=== PATIENT | male | born 1980 | race Two or more races ===

== ENCOUNTER 2024-12-29 18:38 | Inpatient (IN) | payer MEDICAID, SELFPAY ==
[2024-12-29] VITALS (13 sets, daily range): BP systolic 92–121; BP diastolic 51–74; PULSE 90–126; RESP 15–30; TEMP 36.9–39.3; O2SAT 88–100
--- NOTE | 2024-12-29 18:51 | XR_ITS ---
Examination: AP chest single view Technique one AP portable upright chest single view Exam date and time: 05/01/2025 1932 hrs. Indications: Sepsis. Findings: Bilateral pneumonia, significant and diffuse in the left lung right upper lobe Normal heart size The osseous structures are intact, old right-sided rib fractures Impression: Significant bilateral pneumonia
--- NOTE | 2024-12-29 18:51 | EKG_ITS ---
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
--- NOTE | 2024-12-29 18:52 | EDNOTE_ITS ---
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 Patient was noted to be having cough x 2 days, shortness of breath, febrile, tachycardic, and hypoxic. When the EMS arrived patient was noted to be satting 88% on room air. Patient was given albuterol 2 rounds of breathing treatment, IV fluids with oxygen supplementation currently satting 95% on facemask. Denies any other complaints.. Related Data Allergies Allergy/AdvReac Type Severity Reaction Status Date / Time No Known Allergies Allergy Verified 12/29/24 19:21 Review of Systems Review of Systems Narrative Review of Systems: Review of system reviewed and within normal limits except mentioned in HPI ED Exam Narrative Physical exam: VITAL SIGNS: Reviewed. GENERAL APPEARANCE: Alert and interactive, follows commands, no acute distress, HEAD AND FACE: Non-traumatic. ENT: PERRL, pink conjunctivitis, eyelid no trauma, Mucous membrane moist. NECK: Supple, nontender, no nuchal rigidity. CHEST: No tenderness, no crepitus, no paradoxical movement, no retractions. LUNGS: Symmetric ymmetric, + rales, no wheezing, + ronchi, no stridor, decreased breath sounds bilaterally. HEART: Regular rate, regular rhythm, no murmur, no gallops. ABDOMEN: Soft, positive bowel sounds, nondistended, no guarding, nontender, no rebound, no masses, RECTAL: Deferred. GENITAL: Deferred. NEUROLOGICAL: Gross motor function intact sensory function intact, Appropriate for age. MUSCULOSKELETAL: low back nontender, full range of motion. EXTREMITIES: Nontender, full range of motion. SKIN: Color pink, dry, no rash, no lacerations, no abrasions, no contusions. LYMPHATICS: Deferred. Course Quality Measures none Orders Category Date Time Status Bedside COVID-19 Antigen Test NOW Care 12/29/24 18:52 Completed Bedside Influenza A&B Antigen Test NOW Care 12/29/24 18:52 Completed COVID-19 Screening Questionnaire NOW Care 12/29/24 21:40 Active Jewelry Technician STAT Care 12/29/24 18:51 Active Continuous Pulse Oximetry STAT Care 12/29/24 18:51 Completed Decision to Admit X1 Care 12/29/24 21:40 Completed EKG (ED ONLY) *Do not use* NOW Care 12/29/24 18:51 Completed In and Out Catheter X1PRN Care 12/29/24 18:51 Active Insert IV NOW Care 12/29/24 18:51 Active NPO STAT Care 12/29/24 18:51 Active Strict Intake and Output Routine Care 12/29/24 18:51 Ordered EKG (ED Only) Stat Exams 12/29/24 18:51 Draft XR chest 1V SEPSIS PROTOCOL Stat Exams 12/29/24 18:51 Completed Alcohol, Blood Medical Stat Lab 12/29/24 19:10 Completed B-Type Natriuretic Peptide Stat Lab 12/29/24 19:10 Completed Blood Culture (Lab) Stat Lab 12/29/24 19:12 Received CBC Stat Lab 12/29/24 19:10 Completed Comprehensive Metabolic Panel Stat Lab 12/29/24 19:10 Completed Drug Screen,Urine Stat Lab 12/29/24 21:56 Ordered LDH (Lactate Dehydrogenase) Stat Lab 12/29/24 19:10 Completed Lactate (Lactic Acid) Stat Lab 12/29/24 19:10 Completed Lipase Stat Lab 12/29/24 19:10 Completed Magnesium Stat Lab 12/29/24 19:10 Completed Partial Thromboplastin Time Stat Lab 12/29/24 19:10 Completed Phosphorous Stat Lab 12/29/24 19:10 Completed Procalcitonin Stat Lab 12/29/24 19:10 Completed Prothrombin Time with INR Stat Lab 12/29/24 19:10 Completed Troponin I Stat Lab 12/29/24 19:10 Completed Urinalysis Stat Lab 12/29/24 18:51 Ordered Urine Culture Stat Lab 12/29/24 18:51 Ordered Azithromycin Inj [Zithromax Inj] 500 mg Med 12/29/24 21:19 Discontinued Sodium Chloride 0.9% 250 ml [Ns] 250 ml IV X1 Ibuprofen Tab [Motrin Tab] Med 12/29/24 18:51 Discontinued 600 mg PO X1 ONE Sodium Chloride 0.9% 1000 ml [Ns] 1,701 ml Med 12/29/24 20:32 Discontinued IV 1,701 mls/hr cefTRIAXone/D5w 1gm IV premix [Rocephin/D5w 1gm IV Med 12/29/24 18:51 Discontinued premix] 1 gm in 50 ml IV X1 Oxygen Delivery NOW RT 12/29/24 18:51 Active Vital Signs Vital signs: Vital Signs Temperature 102.8 F H 12/29/24 18:41 Pulse Rate 126 H 12/29/24 18:41 Respiratory Rate 26 H 12/29/24 18:41 Blood Pressure 99/65 12/29/24 18:41 Pulse Oximetry (%) 88 L 12/29/24 18:41 Oxygen Delivery Method Room Air 12/29/24 18:41 Shortness of Breath / Dyspnea [facility] Narrative [facility] Narrative:: 44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 Patient was noted to be having cough, shortness of breath, febrile, tachycardic, and hypoxic. When the EMS arrived patient was noted to be satting 88% on room air. Patient was given albuterol 2 rounds of breathing treatment, IV fluids with oxygen supplementation currently satting 95% on facemask. Denies any other complaints. CBC showed no leukocytosis, lactic acid was noted to be 2.9 Pro-Isacc of 46.98 chest x-ray showed significant bilateral pneumonia EKG showed sinus tachycardia, ventricular rate of 121 bpm, no ST segment elevation depression noted. Patient's CMP is significant for total bili of 2.2, AST of 71 [id number] 61. Patient received IV fluids for hydration, IV ceftriaxone, and IV Zithromax. Pat ient was also given ibuprofen Spoke with hospitalist, who admitted the patient. Patient data External records reviewed:: None Clinical information provided by:: patient and EMS Social determinants that could affect healthcare access:: alcohol use Patient has the following chronic illnesses:: None How is presenting disease/condition affected by chronic disease/condition?: no chronic disease Evaluation data The following diagnostics were reviewed and interpreted by me:: lab results, radiology exam(s) and EKG tracing(s) Lab and/or radiology exams considered but not ordered:: None Interpretation Summary: See results in MDM Medications / Prescriptions Medications or Prescriptions considered but not ordered:: None Medication administrations:: Medication Administration History Acetaminophen (Acetaminophen 325 Mg Tablet) 650 mg PO Q6H PRN PRN Reason: PAIN OR FEVER > 100.4 Stop: 01/28/25 22:14 Heparin Sodium (Porcine) (Heparin Sod Inj 5000 Unit/Ml Vial) 5,000 unit SC BID [facility] Stop: 01/13/25 08:59 Ceftriaxone Sodium/Dextrose (Rocephin/D5w 1gm Iv Premix) 1 gm in 50 mls @ 100 mls/hr IV X1 ONE Stop: 12/29/24 22:52 Last Admin: 12/29/24 22:49 Dose: Not Given Documented By: CVL Non-Admin Reason: Other, see note Ceftriaxone Sodium 2 gm/ (Sodium Chloride) 50 mls @ 100 mls/hr IV QDAY [facility] Stop: 01/05/25 22:22 Azithromycin 500 mg/ Sodium (Chloride) 250 mls @ 250 mls/hr IV QDAY [facility] Stop: 01/05/25 22:23 Azithromycin 500 mg/ Sodium (Chloride) 250 mls @ 250 mls/hr IV X1 ONE Stop: 12/29/24 23:44 Last Admin: 12/29/24 22:50 Dose: Not Given Documented By: CVL Non-Admin Reason: Other, see note Comments: ALREADY RECIEVED ONE Ipratropium [place] (Ipratropium Rt 0.5 Mg/ 2.5 Ml Nebu) 0.5 mg INH Q4HRRT [facility] Stop: 01/28/25 22:59 Last Admin: 12/29/24 22:50 Dose: 0.5 mg Documented By: THERESE Levalbuterol HCl (Levalbuterol Rt 0.63 Mg/3 Ml Nebu) 0.63 mg INH Q4HRRT [facility] Stop: 01/28/25 22:59 Last Admin: 12/29/24 22:50 Dose: 0.63 mg Documented By: THERESE Ondansetron HCl (Ondansetron Inj 2 Mg/Ml Inj 2 Ml) 4 mg IV Q6H PRN; Protocol PRN Reason: NAUSEA OR VOMITING Stop: 01/28/25 22:14 Discontinued Medications Ceftriaxone Sodium/Dextrose (Rocephin/D5w 1gm Iv Premix) 1 gm in 50 mls @ 100 mls/hr IV X1 ONE Stop: 12/29/24 19:20 Last Infusion: 12/29/24 20:21 Dose: Infused Documented By: Admin: 12/29/24 19:40 Dose: 100 mls/hr Documented By: CVL Sodium Chloride (Ns) 1,701 mls @ 1,701 mls/hr 30 ml/kg infuse over 60 min (1701 ml) IV .Q1H ONE; Protocol Stop: 12/29/24 21:31 Last Infusion: 12/29/24 21:27 Dose: Infused Documented By: Admin: 12/29/24 20:34 Dose: 1,701 mls/hr Documented By: CVL Azithromycin 500 mg/ Sodium (Chloride) 250 mls @ 250 mls/hr IV X1 ONE Stop: 12/29/24 22:18 Last Infusion: 12/29/24 22:44 Dose: Infused Documented By: Admin: 12/29/24 21:23 Dose: 250 mls/hr Documented By: CVL Ibuprofen (Ibuprofen Tab 600 Mg Tablet) 600 mg PO X1 ONE Stop: 12/29/24 18:52 Last Admin: 12/29/24 19:39 Dose: 600 mg Documented By: CVL Sodium Chloride (Sodium Chloride Rt 10% 15 Ml Nebu) 5 ml INH X1 ONE Stop: 12/29/24 22:16 Ceftriaxone IV, Zithromax IV, Motrin, IV fluids Consultations Consultation(s) initiated? (list below): No Diagnosis Shortness of Breath Differential Diagnosis: congestive heart failure, community acquired pneumonia and other Most likely diagnosis given after review of the tests above:: Sepsis, pneumonia Admission Indicated Admission indicated?: indicated Admission Request Was there a request for admission?: Yes Admission Attestation Admission request attestation: Discussed case with [Dr Baldwin] from Hospitalist service regarding admissio n. Discussed patients ED course, exam findings, labs, and radiology results. The Hospitalist [agrees] to accept the patient for admission. Disposition Plan Disposition Plan: Admit Discharge Plan Plan Patient Disposition: Admit Acute Care w/in Hospital Disposition Comment: Stable Problem List Clinical Impression: Sepsis, Pneumonia
--- NOTE | 2024-12-29 19:02 | PC.NURSE ---
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 PT GOT TO ROOM 3 , PT HAD FEVER, HR HIGH, SOB, [place], SEPSIS ALERT WAS CALLED EMS GOT PT ON NON REBREATHER MASK, IV 18 GAUGE AT LEFT AC.
[2024-12-29 19:19] LABS: Lactate (Lactic Acid) 2.9 mMol/L (0.4-2.0)
[2024-12-29 19:26] LABS: Basophils # (Auto) 0.1 Thou/mm3 (0.0-0.2); Basophils % (Auto) 2 % (0-2.5); Eosinophils % (Auto) 0 % (0-10); Hematocrit 44.3 % (41.0-53.0); Hemoglobin 16.4 g/dL (13.5-16.0); Immature Granulocytes % (Auto) 1 % (0-0); Immature Granulocytes Auto 0.06 Thou/mm3 (0.00-0.00); Lymphocytes # (Auto) 0.3 Thou/mm3 (1.0-4.8); Lymphocytes % (Auto) 7 % (10-50); Mean Corpuscular Hemoglobin 31.5 pg (25.0-35.0); Mean Corpuscular Volume 85 fL (80-100); Monocytes # (Auto) 0.3 Thou/mm3 (0.0-0.8); Monocytes % (Auto) 7 % (0-12); Neutrophils # (Auto) 4.1 Thou/mm3 (1.8-7.7); Neutrophils % (Auto) 84 % (37-80); Nucleated Red Blood Cell % 0 /100 WBC (0); RDW Standard Deviation 38.5 fL (35.1-43.9); White Blood Count 4.9 Thou/mm3 (3.8-10.6)
[2024-12-29] MEDS: IBUPROFEN TAB 600 MG TABLET PO (19:39)
[2024-12-29] MEDS: cefTRIAXone/D5w 1gm IV premix 1 GM/50 ML BAG IV (19:40)
[2024-12-29 19:41] LABS: Partial Thromboplastin Time 28.9 Seconds (22.0-36.0); Prothrombin Time 11.4 Seconds (9.0-12.2)
[2024-12-29 19:45] LABS: B-Type Natriuretic Peptide < 20 pg/mL (0-100)
[2024-12-29 20:06] LABS: Platelet Count 142 Thou/mm3 (140-440)
[2024-12-29 20:24] LABS: Alanine Aminotransferase 61 U/L (10-49); Albumin/Globulin Ratio 1.4 (1.2-2.2); Alkaline Phosphatase 78 U/L (46-116); Anion Gap 9 (7-16); Aspartate Amino Transferase 71 U/L (0-34); BUN/Creatinine Ratio 23 Ratio (12-20); Bilirubin,Total 2.2 mg/dL (0.3-1.2); Blood Urea Nitrogen 27 mg/dL (9-23); Calcium 8.2 mg/dL (8.3-10.6); Calcium (Corrected) 8.2 mg/dL (8.5-10.1); Carbon Dioxide 25.9 mMol/L (20.0-31.0); Chloride 95 mMol/L (98-107); Creatinine (Component) 1.2 mg/dL (0.6-1.3); Globulin 2.9 gm/dL (2.3-3.5); Glucose 133 mg/dL (74-106); Lipase 20 U/L (12-53); Magnesium 2.4 mg/dL (1.6-2.6); Osmolality,Calculated 267 (275-295); Phosphorous 3.2 mg/dL (2.4-5.1); Potassium 4.2 mMol/L (3.4-5.1); Procalcitonin 46.98 ng/ml (0.0-0.49); Sodium 130 mMol/L (136-145); Total Protein 6.9 gm/dL (5.7-8.2); Troponin I < 0.002 ng/mL (0.0-0.045); eGFR > 60 See Note
[2024-12-29] MEDS: SODIUM CHLORIDE 0.9% 1701 ML IV (20:34)
[2024-12-29 20:36] LABS: LDH (Lactate Dehydrogenase) 159 U/L (120-246)
--- NOTE | 2024-12-29 20:36 | PC.NURSE ---
INFORMED KODY PA REGARDING PT BP IS 94/70, NEW ORDER GIVEN AND CARRIED OUT.
[2024-12-29] MEDS: AZITHROMYCIN INJ 500 MG in SODIUM CHLORIDE 0.9% 250 ML 250 ML 250 MG IV (21:23)
[2024-12-29 22:17] LABS: Alcohol, Blood Medical < 3.0 mg/dL (0-10.0); Reflex Lactate? Y
--- NOTE | 2024-12-29 22:24 | ESHP_ITS ---
Documentation for date of: 12/29/24 [facility] History of Present Illness History of present illness: Yaya Varela is a 44-year-old male with past medical history of alcohol dependence, suspected COPD who presents with shortness of breath, cough, and fevers. He states that for the last 2 days he experienced previously noted symptoms and denies recent sick contacts, chills, nausea, vomiting, abdominal pain, weight loss. Due to his symptoms, EMS was called and O2 saturation in field was noted to be 88% on room air and was given 2 rounds of albuteral breathing treatment. Upon arrival to ED, patient was placed on oxygen supplementation and saturated 95% on facemask, RR 26, BP 99/65, T 102.8 F. CBC unremarkable (no leukocytosis), Na130, BUN 27, Cr 1.2, lactate 2.9 -> 1.9 after IVF, calcium 8.2, T. bili 2.2, AST 71, ALT 61, Pro-Isacc 47, EtOH levels < 3.0. CXR shows significant, diffuse hazy bilateral infiltrates (L > R). Given ceftriaxone 1 g x 1, azithromycin 500 mg x 1, levalbuterol/ipratropium breathing treatment, and IVF per sepsis protocol. 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 Review of Systems Review of Systems Systems Reviewed: All systems reviewed, normal except as documented Exam Vital Signs Temp Pulse Resp BP Pulse Ox O2 Del Method O2 Flow Rate 98.9 F 99 24 H 92/57 L 100 Nasal Cannula 3 12/29/24 21:44 12/29/24 21:44 12/29/24 21:44 12/29/24 21:50 12/29/24 21:44 12/29/24 21:44 12/29/24 21:44 Narrative Exam General: ill-appearing but in no acute distress, AOx3, able to speak full sentences HEENT: NC/AT, mucous membranes moist, bilateral sclera anicteric Cardiovascular: regular rate and rhythm, S1/S2 present, no murmurs appreciated Pulmonary: wheezing appreciated bilaterally, no rales/rhonchi, no accessory muscle use Abdominal: soft, non-tender, non-distended, no rebound/guarding, normal bowel sounds present Musculoskeletal: normal ROM, no peripheral edema Skin: warm and dry, intact, no rashes Neuro: CN II-XII intact, no focal deficits Results: Labs 12/30/24 04:47 12/30/24 04:47 Labs: Short CBC 12/29/24 Range/Units 19:10 WBC 4.9 (3.8-10.6) Thou/mm3 Hgb 16.4 H (13.5-16.0) g/dL Hct 44.3 (41.0-53.0) % Plt Count 142 (140-440) Thou/mm3 BMP 12/29/24 19:10 Sodium 130 L Potassium 4.2 Chloride 95 L Carbon Dioxide 25.9 BUN 27 H Creatinine 1.2 Glucose 133 H Calcium 8.2 L Cardiac Enzymes 12/29/24 Range/Units 19:10 Troponin I < 0.002 (0.0-0.045) ng/mL Liver Function 12/29/24 Range/Units 19:10 Total Bilirubin 2.2 H (0.3-1.2) mg/dL AST 71 H (0-34) U/L ALT 61 H (10-49) U/L Alkaline Phosphatase 78 (46-116) U/L Albumin 4.0 (3.5-5.0) gm/dL Quality Measures Quality Measures VTE prophylaxis Medications Home Medications and Allergies Allergies Allergy/AdvReac Type Severity Reaction Status Date / Time No Known Allergies Allergy Verified 12/29/24 19:21 Visit Medications Discontinued Medications Ceftriaxone Sodium/Dextrose (Rocephin/D5w 1gm Iv Premix) 1 gm in 50 mls @ 100 mls/hr IV X1 ONE Stop: 12/29/24 19:20 Last Infusion: 12/29/24 20:21 Dose: Infused Sodium Chloride (Ns) 1,701 mls @ 1,701 mls/hr 30 ml/kg infuse over 60 min (1701 ml) IV .Q1H ONE; Protocol Stop: 12/29/24 21:31 Last Infusion: 12/29/24 21:27 Dose: Infused Azithromycin 500 mg/ Sodium (Chloride) 250 mls @ 250 mls/hr IV X1 ONE Stop: 12/29/24 22:18 Last Admin: 12/29/24 21:23 Dose: 250 mls/hr Ibuprofen (Ibuprofen Tab 600 Mg Tablet) 600 mg PO X1 ONE Stop: 12/29/24 18:52 Last Admin: 12/29/24 19:39 Dose: 600 mg Assessment & Plan Plan Yaya Varela is a 44-year-old male with past medical history of alcohol dependence, suspected COPD who presents with shortness of breath, cough, and fevers. He states that for the last 2 days he experienced previously noted symptoms and denies recent sick contacts, chills, nausea, vomiting, abdominal pain, weight loss (ask about recent travel, incarceration, hemoptysis). Due to his symptoms, EMS was called and O2 saturation in field was noted to be 88% on room air and was given 2 rounds of albuteral breathing treatment. Admitted for management of CAP and AHRF. #Acute hypoxic respiratory failure #Sepsis with end-organ damage #Community-acquired pneumonia #Lactic acidosis, resolved #? Cocci Presents with just a few days of shortness of breath, cough, and fevers. Denies recent sick contacts, chills, nausea, vomiting, abdominal pain, weight loss. Hypoxic in field with 88% on room air that improved with supplemental oxygen, currently on 3 L NC and saturating 99%. Also febrile with temp of 102.8 ?F, initial pulse of 126 that improved to 90 with IVF. BP borderline soft, some readings of 92/57 but currently MAP greater than 65 and will monitor with IVF resuscitation. WBC normal but Pro-Isacc elevated at 47, and elevated lactate of 2.9. CXR showed significant bilateral pneumonia. Septic with qSOFA score of 2, t bili 2.2, transaminitis, and initial elevated lactate as previously noted. In ED received ceftriaxone and azithromycin x 1. ? Ceftriaxone 2 g IV daily given septic presentation, can de-escalate as seen fit. ? Azithromycin 500 mg IV daily ? Follow-up blood cultures ? Follow-up sputum cultures ? Cocci serology ? Legionella urine study given CAP and hyponatremia #? COPD States that he smokes 4-5 cigarettes per day and wheezing appreciated on exam. ? Levalbuterol and ipratropium every 4 hours scheduled ? Will defer steroids, pending cocci serology results ? Recommend outpatient PFTs #Alcohol dependence #Transaminitis #Hyperbilirubinemia Drinks 3-4 beers per day, states last drink was 3 days prior to admission and will hold off on CIWA protocol at this time. Denies abdominal pain and low suspicion for cholecystitis Initial t bili 2.2, AST 71, ALT 61. ALP normal. ? Follow-up liver ultrasound ? Counseled on alcohol cessation Hospital management: Disposition: med tele; AHRF and CAP management Fluids: IVF per sepsis protocol Diet: regular Lines: PIV DVT prophylaxis: heparin SC BID Leonard: not indicated CODE STATUS: full code ----- Plan discussed with attending physician Dr. Bia Elder MD PGY-1 Internal Medicine Attending Provider Attestation/Addendum I have examined the patient, reviewed labs and imaging findings, discussed the case with the resident(s), and reviewed entered orders. I agree with the plan of care as outlined in this note, with these additional summaries/recommendations: Patient is a 44-year-old male with a medical history of chronic tobacco and alcohol use presents to [facility] emergency department on 12/29/2024 with chief complaints of shortness of breath, productive cough, and fevers. Patient seen at bedside in the emergency room. Patient was noted to have O2 saturation of 88% on room air at rest in the field. Patients 02 sat did drop below 88% during my evaluation but quickly returned to normal with supplemental oxygen. Patient diagnosed with acute hypoxic respiratory failure and sepsis secondary to community-acquired pneumonia. Patient meets 3 out of 4 SIRS criteria. qSOFA 2 points indicating high risk associated with a 3-14 fold increase in in-hospital mortality. Patient has evidence of endorgan damage with hyperbilirubinemia and hypoxia. Patient will receive 30 cc/kg fluid resuscitation. Pro-Isacc 46.98 & LA 2.9. Chest x-ray shows significant bilateral pneumonia diffuse in the left lung and right upper lobe. Tmax 102.8F. Blood cultures taken in the ED, follow-up results when available. Patient reports he works in the [employer]. Order cocci serology to rule out valley fever. Patient reports he is also a chronic smoker and minimal bilateral wheezing during auscultation. Patient may have undiagnosed COPD and will need to follow-up outpatient for pulmonary function test. Start DuoNebs as needed. No need for steroids now until cocci ruled out and suspect less likely COPD as patients primary reason for hypoxia. Patient has lactic acidosis and likely type A secondary to sepsis. Patient receiving IV fluids and follow-up reflex lactic acid level. Patient has a completely benign abdominal exam. No tenderness with deep palpation. Patient noted to have minimal transaminitis and hyperbilirubinemia. Findings most likely secondary to chronic alcohol use. Patient reports he drinks 4 beers at minimum daily. Order liver ultrasound. Counseled on alcohol cessation. He is not concerned for alcohol withdrawal and reports his last drink was 3 days ago. Ethyl alcohol level less than 3. We will monitor for alcohol withdrawal and start CIWA if indicated. Start nicotine patch chronic tobacco use. Patient updated on the plan and in agreement. All questions answered to satisfaction. Please see residents note for additional details and management. Dr. Bia MD
[2024-12-29 22:39] LABS: Lactic Acid, 3 HR 1.9 mMol/L (0.4-2.0)
[2024-12-29] MEDS: IPRATROPIUM RT 0.5 MG/ 2.5 ML NEBU INH (22:50)
[2024-12-29] MEDS: LEVALBUTEROL RT 0.63 MG/3 ML NEBU INH (22:50)
[2024-12-29 23:58] LABS: Collection Type, Urine Clean Catch
[2024-12-30] VITALS (12 sets, daily range): BP systolic 95–118; BP diastolic 67–77; PULSE 90–112; RESP 17–26; TEMP 36.3–36.7; O2SAT 87–100; BMI 22.3
--- NOTE | 2024-12-30 | XR_ITS ---
Examination: Abdomen sonogram, Limited Date and time of exam: December 30, 2024 0216 hrs. Indications: Alcohol abuse history with abdominal pain this week Technique: Real-time paredes scale transabdominal sonographic images of the upper abdomen obtained. Findings: Gallbladder sludge Gallbladder wall thickened 0.6 cm Common bile duct 0.3 cm Pancreatic head 1.9 cm Liver 13.7 cm fatty infiltration Normal hepatopedal portal venous flow patent IVC Impression: Gallbladder sludge Gallbladder wall is thickened 0.6 cm, recommend HIDA scan or MRCP follow-up to exclude cholecystitis
--- NOTE | 2024-12-30 00:15 | PC.NURSE ---
REPORT GIVEN TO GABRIELA HERNANDEZ AT [employer].
[2024-12-30 00:20] LABS: Bacteria,Urine Rare; Bilirubin,Urine Negative (Negative); Blood,Urine Trace (Negative); Clarity,Urine Clear (Clear/Hazy); Color,Urine Yellow (Lt Yel-Yel); Glucose, Urine Negative (Negative); Hyaline Casts,Urine 1 /hpf (0-1); Ketones,Urine Negative (Negative); Leukocyte Esterase,Urine Negative (Negative); Nitrite,Urine Negative (Negative); Protein,Urine 1+ (Neg - Trace); RBC,Urine 1 /hpf (0-3); Specific Gravity,Urine 1.022 (1.001-1.035); Squamous Epithelial Cell,Urine < 1 /hpf (0-5); WBC,Urine 2 /hpf (0-5)
[2024-12-30 00:34] LABS: Amphetamine/Methamp Scrn,U Negative (Negative); Barbiturate Screen,Urine Negative (Negative); Benzodiazepines Screen,Urine Negative (Negative); Benzoylecgonine Screen, Ur Negative (Negative); Fentanyl Screen,Urine Negative (Negative); Opiate Screen,Urine Negative (Negative); THC Screen,Urine Positive (Negative)
[2024-12-30] MEDS: NICOTINE PATCH 14 MG/24 HR PATCH.TD24 TOP (00:49)
[2024-12-30] MEDS: LEVALBUTEROL RT 0.63 MG/3 ML NEBU INH ×6 (02:57→22:41)
[2024-12-30] MEDS: IPRATROPIUM RT 0.5 MG/ 2.5 ML NEBU INH ×6 (02:57→22:42)
[2024-12-30] MEDS: ONDANSETRON INJ 2 MG/ML INJ 2 ML 4 MG IV (03:10)
--- NOTE | 2024-12-30 04:01 | PRELIM_ITS ---
Right upper quadrant abdominal ultrasound. December 30, 2024 0216 hours Clinical history: Assess for signs of liver disease given alcohol intake Technique: Grayscale and color flow images of the right upper quadrant are provided. Hepatic and portal veins were also imaged with color flow images. Comparison: No prior study is available for comparison. Findings: The liver is increased in echogenicity. The portal vein is patent and demonstrates hepatopetal flow. No intrahepatic biliary ductal dilatation. No gallbladder calculus. Gallbladder sludge is noted. There is mild gallbladder wall thickening. The common bile duct is normal in caliber at 3 mm. The pancreas is unremarkable to the extent visualized. Impression: Fatty liver. Gallbladder sludge with mild gallbladder wall thickening ; which may represent acute cholecystitis Suggest follow-up with HIDA scan, if clinically indicated. Report Electronically Signed By: Abdiel Fallon 12/30/2024 4:00:53 AM [EST]
[2024-12-30 05:25] LABS: Basophils % (Auto) 0 % (0-2.5); Eosinophils % (Auto) 0 % (0-10); Hematocrit 39.2 % (41.0-53.0); Hemoglobin 14.1 g/dL (13.5-16.0); Immature Granulocytes % (Auto) 1 % (0-0); Immature Granulocytes Auto 0.03 Thou/mm3 (0.00-0.00); Lymphocytes # (Auto) 0.5 Thou/mm3 (1.0-4.8); Lymphocytes % (Auto) 8 % (10-50); Mean Corpuscular Hemoglobin 31.3 pg (25.0-35.0); Mean Corpuscular Volume 87 fL (80-100); Monocytes # (Auto) 0.3 Thou/mm3 (0.0-0.8); Monocytes % (Auto) 4 % (0-12); Neutrophils # (Auto) 5.1 Thou/mm3 (1.8-7.7); Neutrophils % (Auto) 87 % (37-80); Nucleated Red Blood Cell % 0 /100 WBC (0); Platelet Count 161 Thou/mm3 (140-440); RDW Standard Deviation 39.7 fL (35.1-43.9); Red Blood Count 4.51 Miln/mm3 (4.50-5.90); White Blood Count 5.8 Thou/mm3 (3.8-10.6)
[2024-12-30 06:16] LABS: Alanine Aminotransferase 56 U/L (10-49); Albumin, Serum 3.2 gm/dL (3.5-5.0); Albumin/Globulin Ratio 1.3 (1.2-2.2); Alkaline Phosphatase 66 U/L (46-116); Anion Gap 5 (7-16); Aspartate Amino Transferase 66 U/L (0-34); BUN/Creatinine Ratio 30 Ratio (12-20); Bilirubin,Total 1.5 mg/dL (0.3-1.2); Blood Urea Nitrogen 21 mg/dL (9-23); Calcium 7.6 mg/dL (8.3-10.6); Calcium (Corrected) 8.2 mg/dL (8.5-10.1); Carbon Dioxide 25.7 mMol/L (20.0-31.0); Cardiac Risk Estimate 2.6 RATIO (4.0-6.7); Chloride 102 mMol/L (98-107); Cholesterol 100 mg/dL (132-200); Creatinine (Component) 0.7 mg/dL (0.6-1.3); Estimated Creatinine Clearance 114.6 mL/min (>60); Globulin 2.4 gm/dL (2.3-3.5); Glucose 129 mg/dL (74-106); HDL Cholesterol 38 mg/dL (40-60); LDL Cholesterol,Calculated 49 mg/dL (0-130); Magnesium 2.5 mg/dL (1.6-2.6); Osmolality,Calculated 271 (275-295); Potassium 3.8 mMol/L (3.4-5.1); Sodium 133 mMol/L (136-145); Thyroid Stimulating Hormone 2.27 uIU/mL (0.55-4.78); Total Protein 5.6 gm/dL (5.7-8.2); Triglycerides 63 mg/dL (30-150); eGFR > 60 See Note
[2024-12-30] MEDS: cefTRIAXone/D5w 2gm 2 GM/50 ML BAG IV (08:52)
[2024-12-30] MEDS: HEPARIN SOD INJ 5000 UNIT/ML VIAL SC ×2 (08:53→20:02)
--- NOTE | 2024-12-30 10:53 | PD.RESPRO ---
Documentation for date of: 12/30/24 Subjective Subjective Interval history: Patient was seen and examined at bedside. No acute overnight events. Patient was saturating in room air 97%, denied any shortness of breath, mild chest discomfort during inspiration. WBC within normal limits. After fluid resuscitation AST ALT T. bili slightly improved, no recurrent fever. Cultures are still pending. Exam Vital Signs Temp Pulse Resp BP Pulse Ox O2 Del Method O2 Flow Rate 97.6 F 101 H 26 H 99/67 99 Room Air 1 12/30/24 07:47 12/30/24 10:14 12/30/24 10:14 12/30/24 07:47 12/30/24 10:14 12/30/24 07:47 12/30/24 10:14 Narrative Exam GENERAL: no acute distress, AAO x3, well nourished. HEENT: Head AT/ NC. Mucous membranes moist. PERRL. NECK: Supple, no lymphadenopathy, no carotid bruits. CARDIOVASCULAR: RRR. Normal S1/S2, No m/r/g. No pitting edema of bilateral LEs. RESPIRATORY: CTAB. No wheezing, rhonchi, crackles. GASTROINTESTINAL: Abdomen soft, non tender no palpable masses. Bowel sounds present in all 4 quadrants. MUSCULOSKELETAL:? No cyanosis or edema, no visible joint swelling. NEUROLOGICAL: CN II-XII grossly intact. No focal deficits. Sensation intact, symmetric. PSYCHIATRIC: Awake and alert, not agitated, normal mood and affect. INTEGUMENTARY: No obvious rashes, no jaundice, normal turgor. Objective Labs 12/31/24 04:40 12/31/24 04:40 Labs: Laboratory Results - last 24 hr 12/29/24 12/29/24 12/29/24 19:10 22:27 23:50 WBC 4.9 RBC 5.20 Hgb 16.4 H Hct 44.3 MCV 85 MCH 31.5 MCHC 37.0 RDW Std Deviation 38.5 Plt Count 142 Neut % (Auto) 84 H Lymph % (Auto) 7 L [place] % (Auto) 7 Eos % (Auto) 0 Baso % (Auto) 2 Neut # (Auto) 4.1 Lymph # (Auto) 0.3 L [place] # (Auto) 0.3 Eos # (Auto) 0.0 Baso # (Auto) 0.1 Immature Gran # (Auto) 0.06 H Absolute Nucleated RBC 0.00 Immature Gran % 1 H Nucleated RBC % 0 PT 11.4 INR 1.0 APTT 28.9 Sodium 130 L Potassium 4.2 Chloride 95 L Carbon Dioxide 25.9 Anion Gap 9 BUN 27 H Creatinine 1.2 Estim Creat Clear Calc Not Performed. eGFR > 60 BUN/Creatinine Ratio 23 H Glucose 133 H Calculated Osmolality 267 L Lactic Acid 2.9 H 1.9 Calcium 8.2 L Corrected Calcium 8.2 L Phosphorus 3.2 Magnesium 2.4 Total Bilirubin 2.2 H AST 71 H ALT 61 H Alkaline Phosphatase 78 Lactate Dehydrogenase 159 Troponin I < 0.002 B-Natriuretic Peptide < 20 Total Protein 6.9 Albumin 4.0 Globulin 2.9 Albumin/Globulin Ratio 1.4 Triglycerides Cholesterol LDL Cholesterol, Calc HDL Cholesterol Cholesterol/HDL Ratio Lipase 20 Procalcitonin 46.98 H TSH Ur Collection Type Clean Catch Urine Color Yellow Urine Clarity Clear Urine pH 6.0 Ur Specific [place] 1.022 Urine Protein 1+ A Urine Glucose (UA) Negative Urine Ketones Negative Urine Blood Trace Urine Nitrite Negative Urine Bilirubin Negative Urine Urobilinogen (Auto) 6.0 Ur Leukocyte Esterase Negative Urine RBC 1 Urine WBC 2 Ur Squamous Epith Cells < 1 Urine Bacteria Rare Hyaline Casts 1 Urine Opiates Screen Negative Urine Fentanyl Screen Negative Ur Barbiturates Screen Negative U Amphetamin/Meth Scrn Negative U Benzodiazepines Scrn Negative U Cocaine Metab Screen Negative U Marijuana (THC) Screen Positive A Ethyl Alcohol < 3.0 12/30/24 04:47 WBC 5.8 RBC 4.51 Hgb 14.1 D Hct 39.2 L MCV 87 MCH 31.3 MCHC 36.0 RDW Std Deviation 39.7 Plt Count 161 Neut % (Auto) 87 H Lymph % (Auto) 8 L [place] % (Auto) 4 Eos % (Auto) 0 Baso % (Auto) 0 Neut # (Auto) 5.1 Lymph # (Auto) 0.5 L [place] # (Auto) 0.3 Eos # (Auto) 0.0 Baso # (Auto) 0.0 Immature Gran # (Auto) 0.03 H Absolute Nucleated RBC 0.00 Immature Gran % 1 H Nucleated RBC % 0 PT INR APTT Sodium 133 L Potassium 3.8 Chloride 102 Carbon Dioxide 25.7 Anion Gap 5 L BUN 21 Creatinine 0.7 D Estim Creat Clear Calc 114.6 eGFR > 60 BUN/Creatinine Ratio 30 H Glucose 129 H Calculated Osmolality 271 L Lactic Acid Calcium 7.6 L Corrected Calcium 8.2 L Phosphorus 3.0 Magnesium 2.5 Total Bilirubin 1.5 H D AST 66 H ALT 56 H Alkaline Phosphatase 66 Lactate Dehydrogenase Troponin I B-Natriuretic Peptide Total Protein 5.6 L Albumin 3.2 L D Globulin 2.4 Albumin/Globulin Ratio 1.3 Triglycerides 63 Cholesterol 100 L LDL Cholesterol, Calc 49 HDL Cholesterol 38 L Cholesterol/HDL Ratio 2.6 L Lipase Procalcitonin TSH 2.27 Ur Collection Type Urine Color Urine Clarity Urine pH Ur Specific [place] Urine Protein Urine Glucose (UA) Urine Ketones Urine Blood Urine Nitrite Urine Bilirubin Urine Urobilinogen (Auto) Ur Leukocyte Esterase Urine RBC Urine WBC Ur Squamous Epith Cells Urine Bacteria Hyaline Casts Urine Opiates Screen Urine Fentanyl Screen Ur Barbiturates Screen U Amphetamin/Meth Scrn U Benzodiazepines Scrn U Cocaine Metab Screen U Marijuana (THC) Screen Ethyl Alcohol Quality Measures Quality Measures VTE prophylaxis Assessment & Plan Assessment Current Active Medications: Generic Name Dose Route Start Last Admin Trade Name Freq PRN Reason Stop Dose Admin Acetaminophen 650 mg 12/29/24 22:15 Acetaminophen 325 Mg Tablet PO 01/28/25 22:14 Q6H PRN PAIN OR FEVER > 100.4 Heparin Sodium (Porcine) 5,000 unit 12/30/24 09:00 12/30/24 08:53 Heparin Sod Inj 5000 Unit/Ml Vial SC 01/13/25 08:59 5,000 unit BID MAYTE Administration Azithromycin 500 mg/ Sodium 250 mls @ 250 mls/hr 12/30/24 21:00 Chloride IV 01/06/25 20:59 HS MAYTE Ceftriaxone Sodium/Dextrose 2 gm in 50 mls @ 100 mls/hr 12/30/24 09:00 12/30/24 08:52 Rocephin/D5w 2gm IV 01/05/25 22:23 100 mls/hr QDAY MAYTE Administration Sodium Chloride 1,000 mls @ 75 mls/hr 12/30/24 10:51 Ns IV 01/29/25 10:50 .[id number] MAYTE Ipratropium [place] 0.5 mg 12/29/24 23:00 12/30/24 10:14 Ipratropium Rt 0.5 Mg/ 2.5 Ml Nebu INH 01/28/25 22:59 0.5 mg Q4HRRT MAYTE Administration Levalbuterol HCl 0.63 mg 12/29/24 23:00 12/30/24 10:14 Levalbuterol Rt 0.63 Mg/3 Ml Nebu INH 01/28/25 22:59 0.63 mg Q4HRRT MAYTE Administration Ondansetron HCl 4 mg 12/29/24 22:15 12/30/24 03:10 Ondansetron Inj 2 Mg/Ml Inj 2 Ml IV 01/28/25 22:14 4 mg Q6H PRN Administration NAUSEA OR VOMITING Protocol Plan 44-year-old male with past medical history of alcohol use, suspect COPD, was admitted for acute hypoxic respiratory failure secondary due to PNA treatment and management. #Acute hypoxic respiratory failure 2/2 PNA-resolved #Sepsis due to PNA resolved #Community-acquired pneumonia #Lactic acidosis, resolved #? Cocci Presents with just a few days of shortness of breath, cough, and fevers. Hypoxic in field with 88% on room air that improved with supplemental oxygen, currently on 3 L NC and saturating 99%. WBC normal but Pro-Isacc elevated at 47, and elevated lactate of 2.9. CXR showed significant bilateral pneumonia. In ED received ceftriaxone and azithromycin x 1. ? Ceftriaxone ? Azithromycin ? Follow-up blood cultures ? Follow-up sputum cultures ? Cocci serology(fieldwork) ? Legionella urine study given CAP and hyponatremia _ mainanace fluids at 75/h # Hx COPD- not in acute exacerbation States that he smokes 4-5 cigarettes per day and wheezing appreciated on exam. ? Levalbuterol and ipratropium every 4 hours scheduled ? Will defer steroids, pending cocci serology results ? Recommend outpatient PFTs #Alcohol dependence #Transaminitis #Hyperbilirubinemia Drinks 3-4 beers per day, Initial t bili 2.2, AST 71, ALT 61. ALP normal. liver ultrasound: Gallbladder sludge.Gallbladder wall is thickened 0.6 cm, ? Counseled on alcohol cessation Disposition: Med telemetry DVT prophylaxis: Heparin GI prophylaxis: PPI Diet: Regular Lines: PIV CODE STATUS:Full code Patient care was discussed with attending physician Dr. True Adams MD PGY-2 Attending Provider Attestation/Addendum I reviewed labs, imaging, EKG, home medications and prior available records. Face to face evaluation was performed by me. I have personally examined the patient and discussed assessment and plan with the IM team. I reviewed the resident note and agree with the plan with exceptions as below. Acute hypoxic respiratory failure Community-acquired pneumonia, bilateral Marijuana use Elevated lactic acid COPD without exacerbation Alcohol use Oxygen needs are improving Continue ceftriaxone/azithromycin Avoid marijuana use Lactic acid level is improving. Continue IV fluids
[2024-12-30] MEDS: SODIUM CHLORIDE 0.9% 1000 ML 1,000 ML 75 ML IV (11:35)
[2024-12-30] MEDS: ACETAMINOPHEN 325 MG TABLET 650 MG PO (15:27)
[2024-12-30] MEDS: AZITHROMYCIN INJ 500 MG in SODIUM CHLORIDE 0.9% 250 ML 250 ML 250 MG IV (20:02)
[2024-12-31] VITALS (15 sets, daily range): BP systolic 108–136; BP diastolic 77–81; PULSE 83–105; RESP 18–94; TEMP 36.2–37.2; O2SAT 92–100
[2024-12-31] MEDS: IPRATROPIUM RT 0.5 MG/ 2.5 ML NEBU INH ×6 (02:48→22:09)
[2024-12-31] MEDS: LEVALBUTEROL RT 0.63 MG/3 ML NEBU INH ×6 (02:48→22:09)
[2024-12-31 05:47] LABS: Basophils % (Auto) 0 % (0-2.5); Eosinophils % (Auto) 1 % (0-10); Hemoglobin 14.2 g/dL (13.5-16.0); Immature Granulocytes % (Auto) 2 % (0-0); Lymphocytes # (Auto) 0.7 Thou/mm3 (1.0-4.8); Lymphocytes % (Auto) 8 % (10-50); Mean Corpuscular HGB Conc 37.4 g/dl (31.0-37.0); Mean Corpuscular Hemoglobin 31.6 pg (25.0-35.0); Mean Corpuscular Volume 85 fL (80-100); Monocytes # (Auto) 0.4 Thou/mm3 (0.0-0.8); Monocytes % (Auto) 4 % (0-12); Neutrophils # (Auto) 7.4 Thou/mm3 (1.8-7.7); Neutrophils % (Auto) 85 % (37-80); Nucleated Red Blood Cell % 0 /100 WBC (0); Platelet Count 192 Thou/mm3 (140-440); RDW Standard Deviation 37.4 fL (35.1-43.9); Red Blood Count 4.49 Miln/mm3 (4.50-5.90); White Blood Count 8.7 Thou/mm3 (3.8-10.6)
[2024-12-31 06:25] LABS: Alanine Aminotransferase 119 U/L (10-49); Albumin, Serum 3.3 gm/dL (3.5-5.0); Albumin/Globulin Ratio 1.4 (1.2-2.2); Alkaline Phosphatase 86 U/L (46-116); Anion Gap 5 (7-16); Aspartate Amino Transferase 140 U/L (0-34); BUN/Creatinine Ratio 28 Ratio (12-20); Blood Urea Nitrogen 14 mg/dL (9-23); Calcium (Corrected) 8.6 mg/dL (8.5-10.1); Carbon Dioxide 27.3 mMol/L (20.0-31.0); Chloride 102 mMol/L (98-107); Creatinine (Component) 0.5 mg/dL (0.6-1.3); Estimated Creatinine Clearance 160.4 mL/min (>60); Globulin 2.4 gm/dL (2.3-3.5); Glucose 89 mg/dL (74-106); Magnesium 2.1 mg/dL (1.6-2.6); Osmolality,Calculated 267 (275-295); Phosphorous 2.3 mg/dL (2.4-5.1); Potassium 3.6 mMol/L (3.4-5.1); Sodium 134 mMol/L (136-145); Total Protein 5.7 gm/dL (5.7-8.2); eGFR > 60 See Note
--- NOTE | 2024-12-31 09:09 | PC.SS ---
SS follow up note; Patient is on IV ABX, will discharge home when medically cleared.
[2024-12-31] MEDS: cefTRIAXone/D5w 2gm 2 GM/50 ML BAG IV (09:21)
[2024-12-31] MEDS: HEPARIN SOD INJ 5000 UNIT/ML VIAL SC ×2 (09:21→20:13)
[2024-12-31] MEDS: POTASSIUM CHLORIDE 10% 20 MEQ/15 ML UDC 40 MEQ PO (09:22)
[2024-12-31 09:58] LABS: Hepatitis A Antibody IgM Non Reactive (Non React); Hepatitis B Core Antibody IgM Non Reactive (Non React); Hepatitis B Surface Antigen Non Reactive (Non React); Hepatitis C Antibody Non Reactive (Non React)
--- NOTE | 2024-12-31 10:44 | PC.SS ---
Patient Yaya Varela is a 44 Year old male admitted for AHRF CAP. SS met with patient at bedside to discuss discharge plan. Patient reports he lives at home with his daughter, Mary Ann Varela who he reports is his surrogate decision maker, [phone]. Patient reports he does not utilize any source of DME to assist with ambulation. Patient is able to complete all ADL's independently. Choice of pharmacy is [facility]. SS inquired about ETOH resources and patient refused Resources, he reported he does not need any resources and could stop on his own. At time of discharge patient reports he will return back home. Daughter will transport patient home. Discharge Plan: Home Next of Kin: Daughter, Mary Ann Varela, [phone]
[2024-12-31 12:25] LABS: Cocid Sro, CF/ID (UCD) NO CHG* See Sep Rpt
[2024-12-31 12:25] LABS: Cocci Serology, IgM Positive (Negative)
--- NOTE | 2024-12-31 13:08 | ESPR_ITS ---
Documentation for date of: 12/31/24 Subjective Subjective Interval history: No overnight events. Pateint denied chest pain or SOB. NO fevers noted overnight. Pateint tested positive for cocci, Fluconazole added and continue antibioitics. Hepatitis panel negative. Exam Vital Signs Temp Pulse Resp BP Pulse Ox O2 Del Method O2 Flow Rate 97.2 F 101 H 20 114/78 93 L Room Air 1 12/31/24 12:00 12/31/24 12:00 12/31/24 12:12/31/24 12:12/31/24 12:12/31/24 12:12/30/24 18:23 Narrative Exam General Appearance: Alert & Oriented X3, thin male who is lying in bed in no acute distress. HEENT: Skull symmetrical and atraumatic. Conjunctivae pin and moist. Pupils equal, round, reactive to light and accommodation (PERRL). External ear without lesion or discharge. Straight, nares patient, mucosa pink, no discharge. No thyroid nodule appreciated. No cervical lymphadenopathy. Cardio: Normal Rate and Rhythm with S1 and S2 heart sounds. No murmurs or extra heart sounds auscultated. No bruits on carotid auscultation. No peripheral edema or cyanosis. Lungs: Symmetric with good expansion. Chest and back non-tender. Breath sounds vesicular with rhonchi Abdomen: Non-tender, Non-distended, Normal Reactive Bowel Sounds Neuro: Alert, cooperative, oriented to person, place, and time. Speech clear. CN grossly intact. Upper motor strength 5/5 and Lower motor strength 5/5. Sensation intact. Objective Labs 01/01/25 05:41 01/01/25 05:41 Labs: Laboratory Results - last 24 hr 12/31/24 04:40 WBC 8.7 D RBC 4.49 L Hgb 14.2 Hct 38.0 L MCV 85 MCH 31.6 MCHC 37.4 H RDW Std Deviation 37.4 Plt Count 192 D Neut % (Auto) 85 H Lymph % (Auto) 8 L [place] % (Auto) 4 Eos % (Auto) 1 Baso % (Auto) 0 Neut # (Auto) 7.4 Lymph # (Auto) 0.7 L [place] # (Auto) 0.4 Eos # (Auto) 0.0 Baso # (Auto) 0.0 Immature Gran # (Auto) 0.20 H Absolute Nucleated RBC 0.00 Immature Gran % 2 H Nucleated RBC % 0 Sodium 134 L Potassium 3.6 Chloride 102 Carbon Dioxide 27.3 Anion Gap 5 L BUN 14 Creatinine 0.5 L Estim Creat Clear Calc 160.4 eGFR > 60 BUN/Creatinine Ratio 28 H Glucose 89 Calculated Osmolality 267 L Calcium 8.0 L Corrected Calcium 8.6 Phosphorus 2.3 L Magnesium 2.1 Total Bilirubin 1.0 D AST 140 H ALT 119 H Alkaline Phosphatase 86 D Total Protein 5.7 Albumin 3.3 L Globulin 2.4 Albumin/Globulin Ratio 1.4 Coccidioides IgM Ab Positive A Hepatitis A IgM Ab Non Reactive Hep Bs Antigen Non Reactive Hep B Core IgM Ab Non Reactive Hepatitis C Antibody Non Reactive Quality Measures Quality Measures VTE prophylaxis Assessment & Plan Assessment Current Active Medications: Generic Name Dose Route Start Last Admin Trade Name Freq PRN Reason Stop Dose Admin Acetaminophen 650 mg 12/29/24 22:15 12/30/24 15:27 Acetaminophen 325 Mg Tablet PO 01/28/25 22:14 650 mg Q6H PRN Administration PAIN OR FEVER > 100.4 Fluconazole 400 mg 12/31/24 13:00 Fluconazole 100 Mg Tablet PO 01/07/25 12:59 QDAY MAYTE Heparin Sodium (Porcine) 5,000 unit 12/30/24 09:00 12/31/24 09:21 Heparin Sod Inj 5000 Unit/Ml Vial SC 01/13/25 08:59 5,000 unit BID MAYTE Administration Azithromycin 500 mg/ Sodium 250 mls @ 250 mls/hr 12/30/24 21:00 12/30/24 20:02 Chloride IV 01/06/25 20:59 250 mls/hr HS MAYTE Administration Ceftriaxone Sodium/Dextrose 2 gm in 50 mls @ 100 mls/hr 12/30/24 09:00 12/31/24 09:21 Rocephin/D5w 2gm IV 01/05/25 22:23 100 mls/hr QDAY MAYTE Administration Ipratropium [place] 0.5 mg 12/29/24 23:00 12/31/24 10:22 Ipratropium Rt 0.5 Mg/ 2.5 Ml Nebu INH 01/28/25 22:59 0.5 mg Q4HRRT MAYTE Administration Levalbuterol HCl 0.63 mg 12/29/24 23:00 12/31/24 10:22 Levalbuterol Rt 0.63 Mg/3 Ml Nebu INH 01/28/25 22:59 0.63 mg Q4HRRT MAYTE Administration Ondansetron HCl 4 mg 12/29/24 22:15 12/30/24 03:10 Ondansetron Inj 2 Mg/Ml Inj 2 Ml IV 01/28/25 22:14 4 mg Q6H PRN Administration NAUSEA OR VOMITING Protocol Plan 44-year-old male with past medical history of alcohol use, suspect COPD, was admitted for acute hypoxic respiratory failure secondary due to PNA treatment and management. #Pneumonia, Cocci #Acute hypoxic respiratory failure 2/ PNA-resolved #Sepsis due to PNA resolved #Community-acquired pneumonia Presents with just a few days of shortness of breath, cough, and fevers. Hypoxic in field with 88% on room air that improved with supplemental oxygen, currently on 3 L NC and saturating 99%, which has improved and saturating well on room air. Cocci positive. Continue Fluconazole. Continue antibiotics for CAP, consider d/c tomorrow. WBC normal but Pro-Isacc elevated at 47, and elevated lactate of 2.9. CXR showed significant bilateral pneumonia. SOFA estimate 2 (no abg, increased bili and MAP <70) Plan: ? Ceftriaxone (12/29/2024--) & Azithromycin (12/29/2024-) -Fluconazole 400 mg Qday 3-6 months. ? Blood Culture negative 24 hours ? sputum cultures, mixed erika, pending culture ? Legionella urine study given CAP and hyponatremia # Hx COPD- not in acute exacerbation Stated that he smokes 4-5 cigarettes per day and wheezing appreciated on exam. Plan -Nicotine patch ? Levalbuterol and ipratropium every 4 hours scheduled ? Will defer steroids, pending cocci serology results ? Recommend outpatient PFTs #Alcohol-Related Fatty Liver #Transaminitis #Hyperbilirubinemia Noted to drink alcohol on daily basis about 3-4 beers of 12 oz cans. Patient noted to have AST 140 and ALT 119. Total Bili 1.0. Jaundice noted on phyical exam on sclera. Less likely secondary to cholelithiasis as patel sign negative. less likley secondary to hepatitis viral, as negative panel Maddrey's Score: -1.8 point Diagnostics: liver ultrasound: Liver 13.7 cm fatty infiltration Gallbladder sludge.Gallbladder wall is thickened 0.6 cm, Hepatitis Panel Negative Plan -No acute intervention #Alcohol Use Disorder Please follow up outpatient in [place]. Drinks 3-4 beers daily. Plan -Advise, Alcohol Use Cessation -Follow up outpatient #Lactic acidosis, resolved #THC Use Disposition: Med telemetry DVT prophylaxis: Heparin GI prophylaxis: PPI Diet: Regular Lines: PIV CODE STATUS:Full code - The patient's plan was discussed with attending Dr. True Goodman MD PGY1 Internal Medicine Attending Provider Attestation/Addendum I reviewed labs, imaging, EKG, home medications and prior available records. Face to face evaluation was performed by me. I have personally examined the patient and discussed assessment and plan with the IM team. I reviewed the resident note and agree with the plan with exceptions as below. Acute hypoxic respiratory failure Community-acquired pneumonia, bilateral Cocci pneumonia Marijuana use Elevated lactic acid COPD without exacerbation Alcohol use Oxygen needs are improving Slightly tachycardic/tachypneic Started fluconazole Follow-up confirmatory [facility] cocci at [facility] Continue ceftriaxone/azithromycin Avoid marijuana use Lactic acid level is improving. Encourage oral hydration
[2024-12-31] MEDS: FLUCONAZOLE 100 MG TABLET 400 MG PO (13:44)
[2024-12-31] MEDS: AZITHROMYCIN INJ 500 MG in SODIUM CHLORIDE 0.9% 250 ML 250 ML 250 MG IV (20:12)
[2025-01-01] VITALS (10 sets, daily range): BP systolic 115–127; BP diastolic 68–87; PULSE 77–98; RESP 17–96; TEMP 36.5–37; O2SAT 93–100
[2025-01-01] MEDS: LEVALBUTEROL RT 0.63 MG/3 ML NEBU INH ×3 (02:04→10:30)
[2025-01-01] MEDS: IPRATROPIUM RT 0.5 MG/ 2.5 ML NEBU INH ×3 (02:04→10:29)
[2025-01-01 06:18] LABS: Basophils % (Auto) 0 % (0-2.5); Eosinophils # (Auto) 0.1 Thou/mm3 (0.0-0.5); Eosinophils % (Auto) 1 % (0-10); Hematocrit 37.8 % (41.0-53.0); Hemoglobin 13.9 g/dL (13.5-16.0); Immature Granulocytes % (Auto) 14 % (0-0); Immature Granulocytes Auto 1.28 Thou/mm3 (0.00-0.00); Lymphocytes # (Auto) 0.9 Thou/mm3 (1.0-4.8); Lymphocytes % (Auto) 10 % (10-50); Mean Corpuscular HGB Conc 36.8 g/dl (31.0-37.0); Mean Corpuscular Hemoglobin 30.8 pg (25.0-35.0); Mean Corpuscular Volume 84 fL (80-100); Monocytes # (Auto) 0.8 Thou/mm3 (0.0-0.8); Monocytes % (Auto) 8 % (0-12); Neutrophils % (Auto) 66 % (37-80); Nucleated Red Blood Cell % 0 /100 WBC (0); Platelet Count 243 Thou/mm3 (140-440); RDW Standard Deviation 37.7 fL (35.1-43.9); Red Blood Count 4.52 Miln/mm3 (4.50-5.90); White Blood Count 9.1 Thou/mm3 (3.8-10.6)
[2025-01-01 06:41] LABS: Alanine Aminotransferase 118 U/L (10-49); Albumin, Serum 3.3 gm/dL (3.5-5.0); Albumin/Globulin Ratio 1.3 (1.2-2.2); Alkaline Phosphatase 89 U/L (46-116); Anion Gap 7 (7-16); Aspartate Amino Transferase 106 U/L (0-34); BUN/Creatinine Ratio 24 Ratio (12-20); Bilirubin,Total 0.8 mg/dL (0.3-1.2); Blood Urea Nitrogen 12 mg/dL (9-23); Calcium 8.1 mg/dL (8.3-10.6); Calcium (Corrected) 8.7 mg/dL (8.5-10.1); Carbon Dioxide 27.2 mMol/L (20.0-31.0); Chloride 97 mMol/L (98-107); Creatinine (Component) 0.5 mg/dL (0.6-1.3); Estimated Creatinine Clearance 160.4 mL/min (>60); Globulin 2.6 gm/dL (2.3-3.5); Glucose 89 mg/dL (74-106); Magnesium 1.8 mg/dL (1.6-2.6); Osmolality,Calculated 261 (275-295); Phosphorous 3.1 mg/dL (2.4-5.1); Potassium 3.5 mMol/L (3.4-5.1); Sodium 131 mMol/L (136-145); Total Protein 5.9 gm/dL (5.7-8.2); eGFR > 60 See Note
[2025-01-01] MEDS: cefTRIAXone/D5w 2gm 2 GM/50 ML BAG IV (09:07)
[2025-01-01] MEDS: FLUCONAZOLE 100 MG TABLET 400 MG PO (09:08)
[2025-01-01] MEDS: HEPARIN SOD INJ 5000 UNIT/ML VIAL SC (09:08)
[2025-01-01] MEDS: POTASSIUM CHLORIDE 20 mEq TABCR 40 MEQ PO (09:29)
--- NOTE | 2025-01-01 11:32 | ESDS_ITS ---
Planned Discharge Date 01/01/25 DS: Providers Provider Date of admission: 12/29/24 22:14 Primary care physician: Physician No Primary/Family Admitting Provider: Cedric Amezquita MD Attending Provider on Admission: Anson Biswas MD Attending Provider on DC: Yadi Goodman MD Discharging Provider: Yadi Goodman MD DS: Diagnosis Problem List Completed Was Problem List Reviewed/Reconciled?: Yes Hospital Course Hospital Course Hospital course: Summary: Patient is 44-year-old male with past medical history of alcohol use, suspect COPD, was admitted for acute hypoxic respiratory failure secondary due to PNA treatment and found to have positive pneumonia cocci. ER Coures: Upon arrival to ED, patient was placed on oxygen supplementation and saturated 95% on facemask, RR 26, BP 99/65, T 102.8 F. CBC unremarkable (no leukocy tosis), Na130, BUN 27, Cr 1.2, lactate 2.9 -> 1.9 after IVF, calcium 8.2, T. bili 2.2, AST 71, ALT 61, Pro-Isacc 47, EtOH levels < 3.0. CXR shows significant, diffuse hazy bilateral infiltrates (L > R). Given ceftriaxone 1 g x 1, azithromycin 500 mg x 1, levalbuterol/ipratropium breathing treatment, and IVF per sepsis protocol. Hospital Course: Patient tested positive cocci, likely pneumonia secondary to cocci but superimposed community acquired pneumonia can not be ruled out. Patient treated for three days with broad spectrum antibiotics. Blood cultures negative after 48 hours. Sputum culture mixed erika. Urine culture no growth. Patient started Fluconazole 400 mg once daily for the next 3-6 months. Please follow up with your primary doctors. Self reported COPD, but not in acute exacerbation, less likely history of COPD. Patient does smoke THC on consistent bases. Patient is safe for discharge. Instructions: -Please continue to take Fluconazole 400 mg once daily for family fever, for 3-6 months. Please see your primary care provider. -Please follow up with your primary care provider within one week of discharge -If your symptoms worsen,please seek immediate medical attention and return to your nearest emergency room -If you do not have a primary care provider, [facility] [address], [place] [address], Safe to Discharge Home #Pneumonia, Cocci #Acute hypoxic respiratory failure 2/2 PNA-resolved #Sepsis due to PNA resolved #Community-acquired pneumonia # Hx COPD- not in acute exacerbation #Alcohol-Related Fatty Liver #Transaminitis #Hyperbilirubinemia #Alcohol Use Disorder #Lactic acidosis, resolved #THC Use - The patient's plan was discussed with attending Dr True Goodman MD PGY1 Internal Medicine Time Spent with Patient Time attestation: Total time spent providing and/or coordinating discharge services: at least 30 minutes of care and coordination Time spent: Greater than 30 minutes Exam Vital Signs Temp Pulse Resp BP Pulse Ox O2 Del Method O2 Flow Rate 97.7 F 93 24 H 127/87 H 93 L Room Air 1 01/01/25 11:11 01/01/25 11:11 01/01/25 11:11 01/01/25 11:11 01/01/25 11:11 01/01/25 11:11 12/31/24 15:28 Narrative Exam General Appearance: Alert & Oriented X3, well-nourished female who is lying in bed in no acute distress HEENT: Skull symmetrical and atraumatic. Conjunctivae pin and moist. Pupils equal, round, reactive to light and accommodation (PERRL). External ear without lesion or discharge. Straight, nares patient, mucosa pink, no discharge. No thyroid nodule appreciated. No cervical lymphadenopathy. Cardio: Normal Rate and Rhythm with S1 and S2 heart sounds. No murmurs or extra heart sounds auscultated. No bruits on carotid auscultation. No peripheral edema or cyanosis. Lungs: Symmetric with good expansion. Chest and back non-tender. Breath sounds vesicular with rhonchi noted. Abdomen: Non-tender, Non-distended, Normal Reactive Bowel Sounds Neuro: Alert, cooperative, oriented to person, place, and time. Speech clear. CN grossly intact. Upper motor strength 5/5 and Lower motor strength 5/5. Sensation intact. Discharge Plan Plan Patient Disposition: HOME (Self Care) Disposition Comment: Stable Care Plan Goals: Instructions: -Please continue to take Fluconazole 400 mg once daily for family fever, for 3-6 months. Please see your primary care provider. -Please follow up with your primary care provider within one week of discharge -If your symptoms worsen,please seek immediate medical attention and return to your nearest emergency room -If you do not have a primary care provider, you may follow up at the [facility] at [address], [place] [address], Prescriptions/Referrals Prescriptions/Med Rec: New fluconazole 100 mg Tablet 400 mg PO QDAY 30 Days Qty: 120 0RF Referrals: [facility] [Outside] No Primary/Family,Physician [Primary Care Provider] - Patient/Caregiver Discharge Instructions Education Materials: Understanding Coccidioidomycosis Print Language: Lithuanian Stand Alone Forms: Fang Award Info., Patient Portal Info Letter Discharge Order Discharge Orders: Discharge (Routine); Ordered 01/01/25 Ordered By: Yadi Goodman Quality Discharge Quality Measures VTE prophylaxis MD Attestestation MD Attestation I reviewed labs, imaging, EKG, home medications and prior available records. Face to face evaluation was performed by me. I have personally examined the patient and discussed assessment and plan with the IM team. I reviewed the resident note and agree with the plan with exceptions as below. Acute hypoxic respiratory failure Community-acquired pneumonia, bilateral Cocci pneumonia Marijuana use Elevated lactic acid COPD without exacerbation Alcohol use He is on room air Continue fluconazole upon discharge 400 mg daily Follow-up confirmatory test of cocci at [facility] Finish ceftriaxone/azithromycin Avoid marijuana use Time spent is 40 minutes. More than 50% of the time was spent on patient education and coordination of care.
--- NOTE | 2025-01-01 15:14 | PC.SS ---
Patient has d/c orders for today. SS provided patient with clothing and UBER. D/c home
== END 2025-01-01 14:05 | disposition home or self-care (01) | DRG 720 ==
LOC: SERX 20:29 → SERHOLD 22:38 → S3NX 12-30 00:29
PROVIDERS: Nurse Practitioner Family; Admitting Provider Student in an Organized Health Care Education/Training Program; Emergency Provider Emergency Medicine; Visit Provider Student in an Organized Health Care Education/Training Program
DX: A41.9 Sepsis, unspecified organism (principal); F17.210 Nicotine dependence, cigarettes, uncomplicated; F10.20 Alcohol dependence, uncomplicated; Y90.0 Blood alcohol level of less than 20 mg/100 ml; R65.20 Severe sepsis without septic shock; J96.01 Acute respiratory failure with hypoxia; K76.0 Fatty (change of) liver, not elsewhere classified; K82.8 Other specified diseases of gallbladder; F12.90 Cannabis use, unspecified, uncomplicated; J44.0 Chronic obstructive pulmonary disease with (acute) lower respiratory infection; B38.2 Pulmonary coccidioidomycosis, unspecified; E87.20 Acidosis, unspecified; J18.9 Pneumonia, unspecified organism; E87.1 Hypo-osmolality and hyponatremia
CPT/HCPCS: 36415; 71045; 76705; 80053; 80061; 80074; 80307; 80320; 81001; 83605; 83615; 83690; 83735; 83880; 84100; 84145; 84443; 84484; 85025; 85610; 85730; 86635; 87040; 87081; 87086; 87205; 87400; 87449; 87811; 93005; 93225; 94640; 96361; 96365; 96367; 99285; J0456; J0696; J1643; J2405; J7030; J7050; A9270; G0480